=== PATIENT | female | born 1990 | race Caucasian/White ===

== ENCOUNTER 2018-04-28 05:35 | Inpatient (IN) | payer BC ==
[~2018-04-28 05:35] MED LIST: Sodium Chloride 0.9% 10 ML Syringe FLUSH PRN
[2018-04-28] MEDS ORDERED: Citric Acid/Sodium Citrate Solution 30 ML Cup PO ONE (06:30)
[2018-04-28] MEDS ORDERED: Metoclopramide 10 MG/2 ML SDV IV PRN (06:30)
[2018-04-28] MEDS: Lactated Ringers 1,000 ML IV SCH ×2 (06:45→09:15)
[2018-04-28] MEDS ORDERED: Oxytocin/Lactated Ringers 10 UNIT/1,000 ML BAG IV SCH (07:00)
[2018-04-28] MEDS ORDERED: ceFAZolin 2 GM in Premix Bag 1 BAG IV ONE (07:00)
[2018-04-28] MEDS ORDERED: ceFAZolin 1 GM Vial ONE (07:11)
[2018-04-28] MEDS ORDERED: Phenylephrine 1% 10 MG/ML SDV ONE (07:12)
[2018-04-28] MEDS ORDERED: Morphine PF 10 MG/10 ML SDV ONE (07:12)
--- NOTE | 2018-04-28 07:12 | PCM.OPNOTE ---
- General Post-Op/Procedure Note Date of Surgery/Procedure: 04/28/18 Operative Procedure(s): Primary low transverse Findings: Baby Girl in a breech presentation. Apgars of 9 & 9. Weight of 6 lbs 5 oz. Normal appearance of the uterus, fallopian tubes, and ovaries. Pre Op Diagnosis: 39 weeks gestation. 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 Cord blood collected. Fluid Replacement, Intraop: 2,500 Output, Urine Amount: 150 EBL in mLs: 400 Complications: None Condition: Good Free Text/Narrative:: The risks, benefits, indications, potential complications, and alternatives were explained to the patient and informed consent obtained. After induction of anesthesia, the patient was placed in a supine position and then draped and prepped in the usual sterile manner. A Pfannenstiel incision was made and carried down through the subcutaneous tissue to the fascia. Fascial incision was made and extended transversely. The fascia was from the underlying rectus tissue superiorly and inferiorly. The peritoneum was identified and entered. Peritoneal incision was extended longitudinally. The utero-vesical peritoneal reflection was incised transversely and the bladder flap was bluntly freed from the lower uterine segment. A low transverse uterine incision was made sharply with a scalpel and extended bluntly in a cephalocaudad direction. A baby girl was delivered from a breech presentation with standard maneuvers. APGARS as above. After the umbilical cord was clamped and cut cord blood was obtained for evaluation. The placenta was removed intact and appeared normal. The uterus was exteriorized and cleared of clots. The uterine outline, tubes and ovaries appeared normal. The uterine incision was closed with running locked sutures of 0 Vicryl. Hemostasis was obtained with a second imbricating layer of 0 vicryl. The uterus was then placed back into the abdomen. The infracolic gutters were cleared of blood clots. The fascia was then reapproximated with running sutures of 0 Vicryl. The sucutaneous tissue was irrigated with sterile warm normal saline, hemostasis obtained with cautery. This layer was also closed with a running 0 vicryl. The skin was reapproximated with running Subcuticular 4-0 monocryl sutures. Instrument, sponge, and needle counts were correct prior the abdominal closure and at the conclusion of the case.
[2018-04-28] MEDS ORDERED: Oxytocin 10 Units/1 ML SDV ONE (07:13)
[2018-04-28] MEDS ORDERED: Lactated Ringers 1,000 ML ONE ×2 (07:14→08:17)
--- NOTE | 2018-04-28 07:27 | PCM.PREANE ---
Preanesthetic Assessment - Anesthesia/Transfusion/Family Hx Anesthesia History: Prior Anesthesia Without Reaction Family History of Anesthesia Reaction: No Transfusion History: No Prior Transfusion(s) - Review of Systems General: No Symptoms Pulmonary: No Symptoms Cardiovascular: No Symptoms Gastrointestinal: No Symptoms Neurological: Numbness (hands with ) Other: Reports: None - Physical Assessment NPO Status Date: 04/27/18 NPO Status Time: 21:00 Pulse: 88 O2 Sat by Pulse Oximetry: 98 Respiratory Rate: 18 Blood Pressure: 123/75 Temperature: 37.0 C Vital Signs: Last Vital Signs Temp 37.0 C 04/28/18 06:41 Pulse 88 04/28/18 06:41 Resp 18 04/28/18 06:41 BP 123/75 04/28/18 06:41 Pulse Ox 98 04/28/18 06:41 Height: 1.6 m Weight: 87.815 kg ASA Class: 2 Mental Status: Alert & Oriented x3 Airway Class: Mallampati = 1 Dentition: Reports: Normal Dentition Thyro-Mental Finger Breadths: 3 Mouth Opening Finger Breadths: 2 ROM/Head Extension: Full Lungs: Clear to Auscultation, Normal Respiratory Effort Cardiovascular: Regular Rate, Regular Rhythm, No Murmurs - Lab Values: Laboratory Last Values WBC 8.89 K/mm3 (3.98-10.04) 04/28/18 06:27 RBC 3.89 M/mm3 (3.98-5.22) L 04/28/18 06:27 Hgb 11.9 gm/L (11.2-15.7) 04/28/18 06:27 Hct 35.3 % (34.1-44.9) 04/28/18 06:27 MCV 90.7 fl (79.4-94.8) 04/28/18 06:27 MCH 30.6 pg (25.6-32.2) 04/28/18 06:27 MCHC 33.7 g/dl (32.2-35.5) 04/28/18 06:27 RDW Std Deviation 42.9 fL (36.4-46.3) 04/28/18 06:27 Plt Count 235 K/mm3 (182-369) 04/28/18 06:27 MPV 11.3 fl (9.4-12.3) 04/28/18 06:27 Neut % (Auto) 74.5 % (34.0-71.1) H 04/28/18 06:27 Lymph % (Auto) 16.0 % (19.3-51.7) L 04/28/18 06:27 Pratt % (Auto) 8.8 % (4.7-12.5) 04/28/18 06:27 Eos % (Auto) 0.4 (0.7-5.8) L 04/28/18 06:27 Baso % (Auto) 0.1 % (0.1-1.2) 04/28/18 06:27 Neut # (Auto) 6.62 K/mm3 (1.56-6.13) H 04/28/18 06:27 Lymph # (Auto) 1.42 K/mm3 (1.18-3.74) 04/28/18 06:27 Pratt # (Auto) 0.78 K/mm3 (0.24-0.36) H 04/28/18 06:27 Eos # (Auto) 0.04 K/mm3 (0.04-0.36) 04/28/18 06:27 Baso # (Auto) 0.01 K/mm3 (0.01-0.08) 04/28/18 06:27 - Allergies Allergies/Adverse Reactions: Allergies Allergy/AdvReac Type Severity Reaction Status Date / Time Sulfa (Sulfonamide Allergy Hives Verified 04/28/18 00:04 Antibiotics) - Anesthesia Plan Pre-Op Medication Ordered: Antacids - Acknowledgements Anesthesia Type Planned: Spinal Pt an Appropriate Candidate for the Planned Anesthesia: Yes Alternatives and Risks of Anesthesia Discussed w Pt/Guardian: Yes Pt/Guardian Understands and Agrees with Anesthesia Plan: Yes PreAnesthesia Questionnaire HEENT History: Reports: Impaired Vision, Other (See Below) Other HEENT History: wears glasses/contacts Gastrointestinal History: Reports: GERD - Infectious Disease History Infectious Disease History: Reports: Chicken Pox - Past Surgical History HEENT Surgical History: Reports: Oral Surgery - SUBSTANCE USE Smoking Status *Q: Never Smoker Tobacco Use Within Last Twelve Months: No Second Hand Smoke Exposure: No Days Per Week of Alcohol Use: 0 Number of Drinks Per Day: 0 Total Drinks Per Week: 0 Recreational Drug Use History: No - HOME MEDS Home Medications: Home Meds Vits #93/Iron Fum/FA [ Formula Tablet] 04/28/18 [History] - CURRENT (IN HOUSE) MEDS Current Meds: Current Medications Cefazolin Sodium/Dextrose 2 gm (/ Premix) 50 mls @ 100 mls/hr IV ONETIME ONE Stop: 04/28/18 07:29 Lactated Ringer's (Ringers, Lactated) 1,000 mls @ 125 mls/hr IV ASDIRECTED [facility] Last Admin: 04/28/18 06:45 Dose: 125 mls/hr Oxytocin/Lactated Ringer's (Pitocin In Lr 10 Units/1,000 Ml) 10 unit in 1,000 mls @ 100 mls/hr IV ASDIRECTED [facility]; Protocol Metoclopramide HCl (Reglan) 10 mg IV Q6H PRN PRN Reason: Nausea/Vomiting Last Admin: 04/28/18 06:49 Dose: 10 mg Sodium Chloride (Saline Flush) 10 ml FLUSH ASDIRECTED PRN PRN Reason: Keep Vein Open Discontinued Medications Cefazolin Sodium (Ancef) Confirm Administered Dose 2 gm .ROUTE .STK-MED ONE Stop: 04/28/18 07:12 Citric Acid/Sodium Citrate (Bicitra Solution) 30 ml PO ONETIME ONE Stop: 04/28/18 06:31 Last Admin: 04/28/18 06:48 Dose: 30 ml Lactated Ringer's (Ringers, Lactated) Confirm Administered Dose 1,000 mls @ as directed .ROUTE .STK-MED ONE Stop: 04/28/18 07:15 Morphine Sulfate (Duramorph Pf) Confirm Administered Dose 10 mg .ROUTE .STK-MED ONE Stop: 04/28/18 07:13 Oxytocin (Pitocin) Confirm Administered Dose 10 unit .ROUTE .STK-MED ONE Stop: 04/28/18 07:14 Phenylephrine HCl (Deric-Synephrine) Confirm Administered Dose 10 mg .ROUTE .STK- MED ONE Stop: 04/28/18 07:13
[2018-04-28] MEDS ORDERED: Ketorolac 30 MG/ML SDV ONE (08:00)
--- NOTE | 2018-04-28 08:44 | PCM.POSTAN ---
POST ANESTHESIA ASSESSMENT - MENTAL STATUS Mental Status: Alert, Oriented - VITAL SIGNS Pulse Rate: 75 SaO2: 97 Resp Rate: 11 Blood Pressure: 99/52 Temperature: 36.1 C - RESPIRATORY Respiratory Status: Respiratory Rate WNL, Airway Patent, O2 Saturation Stable, Supplemental Oxygen - CARDIOVASCULAR CV Status: Pulse Rate WNL, Blood Pressure Stable - GASTROINTESTINAL GI Status: No Symptoms - PAIN Pain Score: 0 - POST OP HYDRATION Hydration Status: Adequate & Stable - OBSERVATIONS Free Text/Narrative:: no anesthesia complications noted
[2018-04-28] MEDS ORDERED: Acetaminophen/oxyCODONE 325-5 MG Tab PO PRN (09:52)
[2018-04-28] MEDS ORDERED: Dextrose 5%-Lactated Ringers 1,000 ML IV SCH (09:52)
[2018-04-28] MEDS ORDERED: diphenhydrAMINE 50 MG/ML SDV IVPUSH PRN (09:52)
[2018-04-28] MEDS ORDERED: Lanolin 100% Cream 7 GM Tube TOP PRN (09:52)
[2018-04-28] MEDS: Ketorolac 30 MG/ML SDV IVPUSH SCH ×2 (14:13→21:02)
[2018-04-29] MEDS: Ketorolac 30 MG/ML SDV IVPUSH SCH (03:09)
--- NOTE | 2018-04-29 08:04 | PCM.PNPP ---
- General Info Date of Service: 04/29/18 Functional Status: Reports: Pain Controlled, Tolerating Diet, Ambulating, Urinating - Review of Systems General: Reports: No Symptoms Pulmonary: Reports: No Symptoms Cardiovascular: Reports: No Symptoms Gastrointestinal: Reports: No Symptoms Genitourinary: Reports: No Symptoms Musculoskeletal: Reports: No Symptoms Neurological: Reports: No Symptoms - Patient Data Vital Signs - Most Recent: Last Vital Signs Temp 37.3 C 04/29/18 03:59 Pulse 84 04/29/18 03:59 Resp 15 04/29/18 07:00 BP 105/63 04/29/18 03:59 Pulse Ox 97 04/29/18 07:00 Weight - Most Recent: 87.815 kg I&O - Last 24 Hours: Intake & Output 04/28/18 04/29/18 04/29/18 22:59 06:59 14:59 Intake Total 2700 2500 Output Total 300 1225 400 Balance 2400 1275 -400 Lab Results - Last 24 Hours: Laboratory Results - last 24 hr 04/28/18 04/28/18 04/29/18 Range/Units 06:27 06:27 07:25 WBC 9.38 (3.98-10.04) K/mm3 RBC 3.24 L (3.98-5.22) M/mm3 Hgb 9.7 L (11.2-15.7) gm/L Hct 29.8 L (34.1-44.9) % MCV 92.0 (79.4-94.8) fl MCH 29.9 (25.6-32.2) pg MCHC 32.6 (32.2-35.5) g/dl RDW Std Deviation 43.9 (36.4-46.3) fL Plt Count 198 (182-369) K/mm3 MPV 11.0 (9.4-12.3) fl RPR Non-reactive (NONREACTIVE) Blood Type A POSITIVE Gel Antibody Screen Negative Med Orders - Current: Current Medications Diphenhydramine HCl (Benadryl) 25 mg IVPUSH Q6H PRN PRN Reason: Itching or Nausea Docusate Sodium (Colace) 100 mg PO Q12H PRN PRN Reason: Constipation Emollient Ointment (Lansinoh Hpa) 0 gm TOP ASDIRECTED PRN PRN Reason: Sore Nipples Ibuprofen (Motrin) 600 mg PO Q6H PRN PRN Reason: mild pain or fever Oxycodone/Acetaminophen (Percocet 325-5 Mg) 2 tab PO Q4H PRN PRN Reason: Pain (moderate 4-6) Discontinued Medications Cefazolin Sodium (Ancef) Confirm Administered Dose 2 gm .ROUTE .STK-MED ONE Stop: 04/28/18 07:12 Citric Acid/Sodium Citrate (Bicitra Solution) 30 ml PO ONETIME ONE Stop: 04/28/18 06:31 Last Admin: 04/28/18 06:48 Dose: 30 ml Cefazolin Sodium/Dextrose 2 gm (/ Premix) 50 mls @ 100 mls/hr IV ONETIME ONE Stop: 04/28/18 07:29 Last Admin: 04/28/18 10:16 Dose: Not Given Lactated Ringer's (Ringers, Lactated) 1,000 mls @ 125 mls/hr IV ASDIRECTED [facility] Last Admin: 04/28/18 09:15 Dose: 125 mls/hr Oxytocin/Lactated Ringer's (Pitocin In Lr 10 Units/1,000 Ml) 10 unit in 1,000 mls @ 100 mls/hr IV ASDIRECTED [facility]; Protocol Lactated Ringer's (Ringers, Lactated) Confirm Administered Dose 1,000 mls @ as directed .ROUTE .[facility]-MED ONE Stop: 04/28/18 07:15 Lactated Ringer's (Ringers, Lactated) Confirm Administered Dose 1,000 mls @ as directed .ROUTE .[facility]-MED ONE Stop: 04/28/18 08:18 Dextrose/Lactated Ringer's (Dextrose 5%-Lactated Ringers) 1,000 mls @ 125 mls/ hr IV ASDIRECTED [facility] Stop: 04/28/18 17:51 Last Admin: 04/28/18 15:56 Dose: 125 mls/hr Ketorolac Tromethamine (Toradol) Confirm Administered Dose 30 mg .ROUTE .STK- MED ONE Stop: 04/28/18 08:01 Ketorolac Tromethamine (Toradol) 30 mg IVPUSH Q6H [facility] Stop: 04/29/18 02:16 Last Admin: 04/29/18 03:09 Dose: 30 mg Metoclopramide HCl (Reglan) 10 mg IV Q6H PRN PRN Reason: Nausea/Vomiting Last Admin: 04/28/18 06:49 Dose: 10 mg Morphine Sulfate (Duramorph Pf) Confirm Administered Dose 10 mg .ROUTE .STK-MED ONE Stop: 04/28/18 07:13 Oxytocin (Pitocin) Confirm Administered Dose 10 unit .ROUTE .STK-MED ONE Stop: 04/28/18 07:14 Phenylephrine HCl (Deric-Synephrine) Confirm Administered Dose 10 mg .ROUTE .STK- MED ONE Stop: 04/28/18 07:13 Sodium Chloride (Saline Flush) 10 ml FLUSH ASDIRECTED PRN PRN Reason: Keep Vein Open - Infant Interaction Infant Disposition, : [place] in Room with Family Interaction: Holding Infant Feeding: Attempted ; Nursed Fair/Poor Support Person: - Recovery Exam Fundal Tone: Firm Fundal Level: 1 Fingerbreadths Below Umbilicus Fundal Placement: Midline Lochia Amount: Scant Lochia Color: Rubra/Red Perineum Description: Intact, Minimal Bruising/Swelling Episiotomy/Laceration: None Bladder Status: Nonpalpable Urinary Elimination: Not Voiding, Other (see below) Other Urinary Elimination, : Just removed F/C - Exam General: Alert, Oriented, Cooperative Lungs: Clear to Auscultation, Normal Respiratory Effort Cardiovascular: Regular Rate, Regular Rhythm GI/Abdominal Exam: Soft, Non-Tender Extremities: Normal Inspection Skin: Warm, Dry, Intact Wound/Incisions: Healing Well, No Drainage - Problem List & Annotations (1) 39 weeks gestation of SNOMED Code(s): 85701479 Code(s): Z3A.39 - 39 WEEKS GESTATION OF Status: Acute Current Visit: Yes (2) Breech presentation SNOMED Code(s): 5764145 Code(s): O32.1XX0 - MATERNAL CARE FOR BREECH PRESENTATION, UNSP Status: Acute Current Visit: Yes Qualifiers: Fetus number: single or unspecified fetus Qualified Code(s): O32.1XX0 - Maternal care for breech presentation, not applicable or unspecified - Problem List Review Problem List Initiated/Reviewed/Updated: Yes - My Orders Last 24 Hours: My Active Orders 04/28/18 09:52 Activity as Tolerated [RC] .Routine Antiembolic Devices [RC] Q8HR Communication Order [RC] PER UNIT ROUTINE Intake and Output [RC] Q4HR Notify Provider Intake and Out [RC] ASDIRECTED RT Incentive Spirometry [RC] Q2HWA Vital Signs [RC] Q1HR Acetaminophen/oxyCODONE [Percocet 325-5 MG] 2 tab PO Q4H PRN Docusate Sodium [Colace] 100 mg PO Q12H PRN Lanolin [Lansinoh HPA] See Dose Instructions TOP ASDIRECTED PRN diphenhydrAMINE [Benadryl] 25 mg IVPUSH Q6H PRN Assess Lochia [WOMSER] Per Unit Routine Assess Uterine Involution [WOMSER] Per Unit Routine Breast Pump [WOMSER] Per Unit Routine Heat Therapy [OM.PC] Per Unit Routine Peripheral IV Discontinue [OM.PC] Routine Sequential Compression Device [OM.PC] Per Unit Routine 04/28/18 Lunch Regular Diet [DIET] 04/29/18 08:15 Ibuprofen [Motrin] 600 mg PO Q6H PRN - Assessment Assessment:: 28 y/o G1 now P1001 POD#1 from [facility] at 39 1/7 wks for breech - Plan Plan:: S/p PLTCS * Routine cares * Encourage breast feeding * Discharge home in 1-2 days
[2018-04-29] MEDS ORDERED: Ibuprofen 600 MG Tab PO PRN (08:15)
--- NOTE | 2018-04-29 09:27 | PCM48HPAN ---
Post Anesthesia Note - EVALUATION WITHIN 48HRS OF ANESTHETIC Vital Signs in Normal Range: Yes Patient Participated in Evaluation: Yes Respiratory Function Stable: Yes Airway Patent: Yes Cardiovascular Function Stable: Yes Hydration Status Stable: Yes Pain Control Satisfactory: Yes Nausea and Vomiting Control Satisfactory: Yes Mental Status Recovered: Yes
[2018-04-29] MEDS: Docusate Sodium 100 MG Cap PO PRN (13:11)
[2018-04-30] MEDS: Docusate Sodium 100 MG Cap PO PRN (06:35)
--- NOTE | 2018-04-30 06:58 | PCM.DCSUM1 ---
Discharge Summary - Hospital Course Free Text/Narrative:: Janine tamayo a 28-year-old 1 now para 1001 white female was admitted on 2018 for elective primary section for breech presentation. She delivered a 6 lbs. 5 oz. female in a breech presentation. scores were 9 and 9. The procedure was unremarkable. Post operative course was relatively unremarkable. She is nursing. she has no complaints and is done desiring discharge home today. Diagnosis: Stroke: No - Discharge Data Discharge Date: 04/30/18 Discharge Disposition: Home, Self-Care 01 Condition: Good - Patient Summary/Data Operative Procedure(s) Performed: Primary low transverse - Patient Instructions Diet: Regular Diet as Tolerated (Nursing diet with increase calories and calcium as recommended) Activity: As Tolerated (No intercourse or tampons until seen back, no driving a car or lifting greater than 15 pounds for 1 week.) Driving: Do Not Drive (1 week) Showering/Bathing: May Shower Wound/Incision Care: Keep Operative Site/Wound Site Clean and Dry Notify Provider of: Fever, Increased Pain, Swelling and Redness, Drainage, Nausea and/or Vomiting - Discharge Plan Home Medications: Home Meds Vits #93/Iron Fum/FA [ Formula Tablet] 04/28/18 [History] Acetaminophen/oxyCODONE [Percocet 325-5 MG] 2 tab PO Q4H PRN tablet 04/30/18 [ Rx] Docusate Sodium [Colace] 100 mg PO Q12H PRN cap 04/30/18 [Rx] Ibuprofen [Motrin] 600 mg PO Q6H PRN tablet 04/30/18 [Rx] Referrals: Ev Lazcano MD [Physician] - ([facility]) - Discharge Summary/Plan Comment DC Time >30 min.: No Discharge Summary/Plan Comment: Discharge instructions: 1. Discharge home 2. Diet, activity and follow-up discussed with patient. Recommend nursing diet with increased calories and calcium. 3. Precautions given concern increased pain, bleeding, temperature, signs/ symptoms of DVT/PE. 4. Medications per home medication was printed, discussed with and given to the patient. 5. [facility] Diagnosis: Term -delivered Condition: Good - Patient Data Vitals - Most Recent: Last Vital Signs Temp 36.8 C 04/30/18 02:15 Pulse 78 04/30/18 02:15 Resp 16 04/30/18 02:15 BP 128/75 04/30/18 02:15 Pulse Ox 98 04/30/18 02:15 Weight - Most Recent: 87.815 kg I&O - Last 24 hours: Intake & Output 04/29/18 04/29/18 04/30/18 14:59 22:59 06:59 Intake Total 120 220 Output Total 900 Balance -780 220 Lab Results - Last 24 hrs: Laboratory Results - last 24 hr 04/29/18 Range/Units 07:25 WBC 9.38 (3.98-10.04) K/mm3 RBC 3.24 L (3.98-5.22) M/mm3 Hgb 9.7 L (11.2-15.7) gm/L Hct 29.8 L (34.1-44.9) % MCV 92.0 (79.4-94.8) fl MCH 29.9 (25.6-32.2) pg MCHC 32.6 (32.2-35.5) g/dl RDW Std Deviation 43.9 (36.4-46.3) fL Plt Count 198 (182-369) K/mm3 MPV 11.0 (9.4-12.3) fl Med Orders - Current: Current Medications Diphenhydramine HCl (Benadryl) 25 mg IVPUSH Q6H PRN PRN Reason: Itching or Nausea Docusate Sodium (Colace) 100 mg PO Q12H PRN PRN Reason: Constipation Last Admin: 04/30/18 06:35 Dose: 100 mg Emollient Ointment (Lansinoh Hpa) 0 gm TOP ASDIRECTED PRN PRN Reason: Sore Nipples Ibuprofen (Motrin) 600 mg PO Q6H PRN PRN Reason: mild pain or fever Last Admin: 04/29/18 19:45 Dose: 600 mg Oxycodone/Acetaminophen (Percocet 325-5 Mg) 2 tab PO Q4H PRN PRN Reason: Pain (moderate 4-6) Discontinued Medications Cefazolin Sodium (Ancef) Confirm Administered Dose 2 gm .ROUTE .STK-MED ONE Stop: 04/28/18 07:12 Citric Acid/Sodium Citrate (Bicitra Solution) 30 ml PO ONETIME ONE Stop: 04/28/18 06:31 Last Admin: 04/28/18 06:48 Dose: 30 ml Cefazolin Sodium/Dextrose 2 gm (/ Premix) 50 mls @ 100 mls/hr IV ONETIME ONE Stop: 04/28/18 07:29 Last Admin: 04/28/18 10:16 Dose: Not Given Lactated Ringer's (Ringers, Lactated) 1,000 mls @ 125 mls/hr IV ASDIRECTED [facility] Last Admin: 04/28/18 09:15 Dose: 125 mls/hr Oxytocin/Lactated Ringer's (Pitocin In Lr 10 Units/1,000 Ml) 10 unit in 1,000 mls @ 100 mls/hr IV ASDIRECTED [facility]; Protocol Lactated Ringer's (Ringers, Lactated) Confirm Administered Dose 1,000 mls @ as directed .ROUTE .STK-MED ONE Stop: 04/28/18 07:15 Lactated Ringer's (Ringers, Lactated) Confirm Administered Dose 1,000 mls @ as directed .ROUTE .STK-MED ONE Stop: 04/28/18 08:18 Dextrose/Lactated Ringer's (Dextrose 5%-Lactated Ringers) 1,000 mls @ 125 mls/ hr IV ASDIRECTED [facility] Stop: 04/28/18 17:51 Last Admin: 04/28/18 15:56 Dose: 125 mls/hr Ketorolac Tromethamine (Toradol) Confirm Administered Dose 30 mg .ROUTE .STK- MED ONE Stop: 04/28/18 08:01 Ketorolac Tromethamine (Toradol) 30 mg IVPUSH Q6H [facility] Stop: 04/29/18 02:16 Last Admin: 04/29/18 03:09 Dose: 30 mg Metoclopramide HCl (Reglan) 10 mg IV Q6H PRN PRN Reason: Nausea/Vomiting Last Admin: 04/28/18 06:49 Dose: 10 mg Morphine Sulfate (Duramorph Pf) Confirm Administered Dose 10 mg .ROUTE .STK-MED ONE Stop: 04/28/18 07:13 Oxytocin (Pitocin) Confirm Administered Dose 10 unit .ROUTE .STK-MED ONE Stop: 04/28/18 07:14 Phenylephrine HCl (Deric-Synephrine) Confirm Administered Dose 10 mg .ROUTE .STK- MED ONE Stop: 04/28/18 07:13 Sodium Chloride (Saline Flush) 10 ml FLUSH ASDIRECTED PRN PRN Reason: Keep Vein Open
== END 2018-04-30 10:30 | disposition home or self-care (01) | DRG 540 ==
LOC: JD.OB 05:35
PROVIDERS: ADMIT Obstetrics & Gynecology; ATTEND Obstetrics & Gynecology
PROC: 10D00Z1 Extraction of Products of Conception, Low, Open Approach (ICD-10-PCS; principal; 2018-04-28)
PROC: 6A550ZT Pheresis of Cord Blood Stem Cells, Single (ICD-10-PCS; principal; 2018-04-28)
DX: O32.1XX0 Maternal care for breech presentation, not applicable or unspecified (principal); Z37.0 Single live birth; Z3A.39 39 weeks gestation of pregnancy; O99.62 Diseases of the digestive system complicating childbirth; K21.9 Gastro-esophageal reflux disease without esophagitis; Z88.2 Allergy status to sulfonamides
CPT/HCPCS: 36415; 59025; 85025; 85027; 86592; 86850; 86900; 86901; A9270-GY; J0690; J1885; J2270; J2370; J2590; J2765; J7042; J7120

== ENCOUNTER 2019-10-01 11:57 | Emergency (ER) | payer BC ==
[2019-10-01] MEDS ORDERED: Sodium Chloride 0.9% 10 ML Syringe FLUSH PRN (12:09)
--- NOTE | 2019-10-01 12:42 | EDM.PDOC ---
ED HPI GENERAL MEDICAL PROBLEM - General Chief Complaint: MANAGER CLINICAL Problem Stated Complaint: 8 WEEKS PREG AND BLEEDING Time Seen by Provider: 10/01/19 12:09 Source of Information: Reports: Patient, RN Notes Reviewed History Limitations: Reports: No Limitations - History of Present Illness INITIAL COMMENTS - FREE TEXT/NARRATIVE: Patient is a 29-year-old female, who presents to the ED for vaginal bleeding and . Patient notes she is a G2, P1, and states she is roughly 7-1/2 to 8 weeks . She states that her last menstrual period was August 10, and took a positive home test on September 13. Patient notes this morning she started bleeding, and states it felt like she "peed her pants". She states that the bleeding has since subsided, or stop completely, she has had no cramping. Patient noted no clots with the blood that was present. Patient has not had an MANAGER CLINICAL evaluation for this , states that her MANAGER CLINICAL is Dr. Sheets. She believes her blood type is a positive. She states that her first was uneventful, and delivered via . She denies any fever/chills, cough/shortness of breath, nausea/vomiting/diarrhea, or any abdominal pain, dysuria/frequency/urgency. Vital signs are stable, blood pressure is 131/78. - Related Data Allergies Allergy/AdvReac Type Severity Reaction Status Date / Time Sulfa (Sulfonamide Allergy Hives Verified 04/28/18 00:04 Antibiotics) Home Meds: Home Meds Vits #93/Iron Fum/FA [ Formula Tablet] 04/28/18 [History] Acetaminophen/oxyCODONE [Percocet 325-5 MG] 2 tab PO Q4H PRN tablet 04/30/18 [Rx] Docusate Sodium [Colace] 100 mg PO Q12H PRN cap 04/30/18 [Rx] Ibuprofen [Motrin] 600 mg PO Q6H PRN tablet 04/30/18 [Rx] Past Medical History HEENT History: Reports: Impaired Vision, Other (See Below) Other HEENT History: wears glasses/contacts Gastrointestinal History: Reports: GERD MANAGER CLINICAL History: Reports: - Infectious Disease History Infectious Disease History: Reports: Chicken Pox - Past Surgical History HEENT Surgical History: Reports: Oral Surgery Social & Family History - Tobacco Use Smoking Status *Q: Never Smoker Second Hand Smoke Exposure: No - Recreational Drug Use Recreational Drug Use: No ED ROS GENERAL - Review of Systems Review Of Systems: Comprehensive ROS is negative, except as noted in HPI. ED EXAM - Physical Exam Exam: See Below Exam Limited By: No Limitations General Appearance: Alert, WD/WN, No Apparent Distress Respiratory/Chest: No Respiratory Distress, Lungs Clear, Normal Breath Sounds, No Accessory Muscle Use, Chest Non-Tender Cardiovascular: Normal Peripheral Pulses, Regular Rate, Rhythm, No Murmur GI/Abdominal Exam: Normal Bowel Sounds, Soft, Non-Tender, No Distention, No Mass (Female) Exam: No: Tissue Present in Cervix/Vagina Heart Tones: Not [place] Movement: Not Appreciated Neurological: Alert, Oriented, Normal Cognition, No Motor/Sensory Deficits Psychiatric: Normal Affect, Normal Mood Skin Exam: Warm, Dry, Intact, Normal Color, No Rash Course - Vital Signs Last Recorded V/S: Last Vital Signs Temp 97.6 F 10/01/19 12:04 Pulse 70 10/01/19 12:04 Resp 16 10/01/19 12:04 BP 131/78 10/01/19 12:04 Pulse Ox 100 10/01/19 12:04 - Orders/Labs/Meds Orders: Active Orders 24 hr Category Date Time Status Peripheral IV Care [RC] . DIRECTED Care 10/01/19 12:10 Active Sodium Chloride 0.9% [Saline Flush] Med 10/01/19 12:09 Active 10 ml FLUSH ASDIRECTED PRN Peripheral IV Insertion Adult [OM.PC] Stat Oth 10/01/19 12:09 Ordered Medication Orders Sodium Chloride (Saline Flush) 10 ml FLUSH ASDIRECTED PRN PRN Reason: Keep Vein Open Last Admin: 10/01/19 12:22 Dose: 10 ml Documented by: HERMMIC Labs: Laboratory Tests 10/01/19 10/01/19 10/01/19 Range/Units 12:22 12:22 12:22 WBC 5.94 (3.98-10.04) K/mm3 RBC 4.28 (3.98-5.22) M/mm3 Hgb 12.9 D (11.2-15.7) gm/dl Hct 38.5 (34.1-44.9) % MCV 90.0 (79.4-94.8) fl MCH 30.1 (25.6-32.2) pg MCHC 33.5 (32.2-35.5) g/dl RDW Std Deviation 41.4 (36.4-46.3) fL Plt Count 244 (182-369) K/mm3 MPV 10.5 (9.4-12.3) fl Neut % (Auto) 60.8 (34.0-71.1) % Lymph % (Auto) 26.8 (19.3-51.7) % [place] % (Auto) 11.4 (4.7-12.5) % Eos % (Auto) 0.5 L (0.7-5.8) Baso % (Auto) 0.3 (0.1-1.2) % Neut # (Auto) 3.61 (1.56-6.13) K/mm3 Lymph # (Auto) 1.59 (1.18-3.74) K/mm3 [place] # (Auto) 0.68 H (0.24-0.36) K/mm3 Eos # (Auto) 0.03 L (0.04-0.36) K/mm3 Baso # (Auto) 0.02 (0.01-0.08) K/mm3 HCG, Quant 84009.0 mIU/mL Blood Type A POSITIVE Meds: Medications Generic Name Dose Route Start Last Admin Trade Name Freq PRN Reason Stop Dose Admin Sodium Chloride 10 ml 10/01/19 12:09 10/01/19 12:22 Saline Flush FLUSH 10 ml ASDIRECTED PRN Administration Keep Vein Open - Re-Assessments/Exams Free Text/Narrative Re-Assessment/Exam: 10/01/19 12:41 Patient presents to the ED for the evaluation of her bleeding and . CBC, quantitative hCG, ABO/Rh blood typing will be obtained along with a transvaginal ultrasound for evaluation of the patient's . 10/01/19 14:06 Ultrasound is done, but still pending at this time. Patient's hemoglobin is within normal limits at 12.9, hCG is 75,838, patient's blood type is a positive. 10/01/19 14:32 Ultrasound demonstrates a single intrauterine gestation, with gestational dates of 6 weeks 4 days by crown-rump length. Heart rate and 96 bpm. Low heart rate which most likely relates to the age of the gestation. Recommend follow-up exam in 11 days of the patient does not miscarry, to confirm normal developing . We will have her follow-up with Dr. Sheets, sometime this week for possible repeat hCG and a follow-up ultrasound as directed by radiology. Departure - Departure Time of Disposition: 14:19 Disposition: Home, Self-Care 01 Condition: Good Clinical Impression: Vaginal bleeding during - Discharge Information *PRESCRIPTION DRUG MONITORING PROGRAM REVIEWED*: No *COPY OF PRESCRIPTION DRUG MONITORING REPORT IN PATIENT CARINE: No Referrals: Wilda Sheets MD [Primary Care Provider] - Forms: ED Department Discharge Additional Instructions: You were evaluated in the ER today regarding your vaginal bleeding in . You did have some labs drawn, and these were within normal limits, your hCG level was 75,838 , your blood type is A+. Your ultrasound demonstrated a single intrauterine gestation with a heart rate of 96 bpm. By ultrasound, your child is 6 weeks 4 days. Recommend that you do not lift anything heavier than a gallon of milk (5 lbs), do not engage in sexual activities, try to get as much pelvic rest as possible for the next few days. Please try not to exert yourself, rest and relax, and take it easy. If you are bleeding through more than 1-2 maxi pads every couple hours, this would be cause for concern to return to the ER for immediate management. Please follow up with your MANAGER CLINICAL at your next scheduled appointment. If you do not already have an appt scheduled, please do so for early this coming week for repeat labs if MANAGER CLINICAL thinks it is warranted. It is recommended that you have your ultrasound repeated in around 11 days, to make sure that the is developing normally. You have also been given a copy of your ultrasound results to discuss with your MANAGER CLINICAL. Please return to the ED at any time if your symptoms change or worsen. Sepsis Event Note (ED) - Evaluation Sepsis Screening Result: No Definite Risk - Focused Exam Vital Signs: Vital Signs Temp Pulse Resp BP Pulse Ox 10/01/19 12:04 97.6 F 70 16 131/78 100 - My Orders Last 24 Hours: My Active Orders 10/01/19 12:09 Sodium Chloride 0.9% [Saline Flush] 10 ml FLUSH ASDIRECTED PRN Peripheral IV Insertion Adult [OM.PC] Stat 10/01/19 12:10 Peripheral IV Care [RC] . DIRECTED - Assessment/Plan Last 24 Hours: My Active Orders 10/01/19 12:09 Sodium Chloride 0.9% [Saline Flush] 10 ml FLUSH ASDIRECTED PRN Peripheral IV Insertion Adult [OM.PC] Stat 10/01/19 12:10 Peripheral IV Care [RC] . DIRECTED
--- NOTE | 2019-10-01 14:27 | US ---
Obstetrical ultrasound: Multiple real-time images were obtained transvaginally. Comparison: No previous obstetrical imaging is available. Dates: LMP: LMP given as 08/11/19, SANJEEV 05/17/20, gestational age 7 weeks 2 days Current ultrasound: SANJEEV 05/22/20, gestational age 6 weeks 4 days Single intrauterine gestation is seen. Amniotic fluid volume is normal. No subchorionic hemorrhage is identified. Gestational sac is slightly irregular. Measurements: [place]-rump length: 0.67 cm - 6 weeks 4 days Heart rate: 96 BPM Impression: 1. Single intrauterine gestation. Dates as noted above. 2. Low heart rate which most likely relates to age of gestation. 3. Recommend follow-up exam in 11 days, if patient does not miscarry, to confirm normal developing . Diagnostic code #2 This report was dictated in MDT
== END 2019-10-01 15:01 | disposition home or self-care (01) ==
LOC: JD.ED 11:57
DX: O20.9 Hemorrhage in early pregnancy, unspecified (principal); Z88.2 Allergy status to sulfonamides; Z3A.01 Less than 8 weeks gestation of pregnancy
CPT/HCPCS: 36415; 76817; 76817-26; 84702; 85025; 86900; 86901; 99284-25

== ENCOUNTER 2021-02-14 05:26 | Inpatient (IN) | payer BC ==
[2021-02-14] MEDS: Lactated Ringers 1,000 ML IV SCH ×4 (05:57→18:31)
[2021-02-14] MEDS ORDERED: Citric Acid/Sodium Citrate Solution 30 ML Cup PO ONE (06:00)
[2021-02-14] MEDS ORDERED: Metoclopramide 10 MG/2 ML SDV IVPUSH ONE (06:00)
[2021-02-14] MEDS ORDERED: Oxytocin 10 Units/1 ML SDV ONE (06:45)
[2021-02-14] MEDS ORDERED: Morphine PF 10 MG/10 ML SDV ONE (06:45)
[2021-02-14] MEDS ORDERED: fentaNYL 100 MCG/2 ML SDV ONE (06:45)
[2021-02-14] MEDS ORDERED: ceFAZolin 1 GM Vial ONE (06:51)
[2021-02-14] MEDS ORDERED: Oxytocin/Lactated Ringers 10 UNIT/1,000 ML BAG IV SCH (07:00)
[2021-02-14] MEDS ORDERED: ceFAZolin 2 GM in Premix Bag 1 BAG IV ONE (07:00)
--- NOTE | 2021-02-14 07:13 | PCM.PREANE ---
Preanesthetic Assessment - Procedure Proposed Procedure: Repeat section - Anesthesia/Transfusion/Family Hx Anesthesia History: Prior Anesthesia Without Reaction Transfusion History: No Prior Transfusion(s) - Review of Systems General: No Symptoms Pulmonary: No Symptoms Cardiovascular: No Symptoms Gastrointestinal: No Symptoms Neurological: No Symptoms Other: Reports: None - Physical Assessment NPO Status Date: 02/13/21 NPO Status Time: 20:00 Vital Signs: Last Vital Signs Temp 98.5 F 02/14/21 06:00 Pulse 98 02/14/21 06:00 Resp 16 02/14/21 06:00 BP 120/83 02/14/21 06:00 Pulse Ox 96 02/14/21 06:00 Height: 1.6 m Weight: 94.801 kg ASA Class: 2 Mental Status: Alert & Oriented x3 Airway Class: Mallampati = 2 Dentition: Reports: Normal Dentition Thyro-Mental Finger Breadths: 3 Mouth Opening Finger Breadths: 3 ROM/Head Extension: Full Lungs: Clear to Auscultation, Normal Respiratory Effort Cardiovascular: Regular Rate, Regular Rhythm - Lab Values: Laboratory Last Values WBC 5.98 K/mm3 (3.98-10.04) 02/14/21 06:15 RBC 3.70 M/mm3 (3.98-5.22) L 02/14/21 06:15 Hgb 10.5 gm/dl (11.2-15.7) L D 02/14/21 06:15 Hct 32.6 % (34.1-44.9) L 02/14/21 06:15 MCV 88.1 fl (79.4-94.8) 02/14/21 06:15 MCH 28.4 pg (25.6-32.2) 02/14/21 06:15 MCHC 32.2 g/dl (32.2-35.5) 02/14/21 06:15 RDW Std Deviation 41.0 fL (36.4-46.3) 02/14/21 06:15 Plt Count 175 K/mm3 (182-369) L 02/14/21 06:15 MPV 10.1 fl (9.4-12.3) 02/14/21 06:15 Neut % (Auto) 44.2 % (34.0-71.1) 02/14/21 06:15 Lymph % (Auto) 40.8 % (19.3-51.7) 02/14/21 06:15 [place] % (Auto) 14.0 % (4.7-12.5) H 02/14/21 06:15 Eos % (Auto) 0.3 (0.7-5.8) L 02/14/21 06:15 Baso % (Auto) 0.7 % (0.1-1.2) 02/14/21 06:15 Neut # (Auto) 2.64 K/mm3 (1.56-6.13) 02/14/21 06:15 Lymph # (Auto) 2.44 K/mm3 (1.18-3.74) 02/14/21 06:15 [place] # (Auto) 0.84 K/mm3 (0.24-0.36) H 02/14/21 06:15 Eos # (Auto) 0.02 K/mm3 (0.04-0.36) L 02/14/21 06:15 Baso # (Auto) 0.04 K/mm3 (0.01-0.08) 02/14/21 06:15 SARS-CoV-2 RNA (ZACK) Negative (NEGATIVE) 02/14/21 05:37 - Allergies Allergies/Adverse Reactions: Allergies Allergy/AdvReac Type Severity Reaction Status Date / Time Sulfa (Sulfonamide Allergy Hives Verified 04/28/18 00:04 Antibiotics) - Acknowledgements Anesthesia Type Planned: Spinal Pt an Appropriate Candidate for the Planned Anesthesia: Yes Alternatives and Risks of Anesthesia Discussed w Pt/Guardian: Yes Pt/Guardian Understands and Agrees with Anesthesia Plan: Yes PreAnesthesia Questionnaire HEENT History: Reports: Impaired Vision, Other (See Below) Other HEENT History: wears glasses/contacts Gastrointestinal History: Reports: GERD ALTERATIONS EXPERT History: Reports: - Infectious Disease History Infectious Disease History: Reports: Chicken Pox - Past Surgical History HEENT Surgical History: Reports: Oral Surgery - SUBSTANCE USE Tobacco Use Status *Q: Never Tobacco User Second Hand Smoke Exposure: No Recreational Drug Use History: No - HOME MEDS Home Medications: Home Meds Vits #93/Iron Fum/FA [ Formula Tablet] 04/28/18 [History] Acetaminophen/oxyCODONE [Percocet 325-5 MG] 2 tab PO Q4H PRN tablet 04/30/18 [Rx] Docusate Sodium [Colace] 100 mg PO Q12H PRN cap 04/30/18 [Rx] Ibuprofen [Motrin] 600 mg PO Q6H PRN tablet 04/30/18 [Rx] - CURRENT (IN HOUSE) MEDS Current Meds: Current Medications Cefazolin Sodium/Dextrose 2 gm (/ Premix) 50 mls @ 100 mls/hr IV ONETIME ONE Stop: 02/14/21 07:29 Oxytocin/Lactated Ringer's (Pitocin In Lr 10 Units/1,000 Ml) 10 unit in 1,000 mls @ 100 mls/hr IV ASDIRECTED JOAO; Protocol Lactated Ringer's (Ringers, Lactated) 1,000 mls @ 125 mls/hr IV ASDIRECTED JOAO Last Admin: 02/14/21 07:01 Dose: 125 mls/hr Documented by: Sodium Chloride (Sodium Chloride 0.9% 10 Ml Syringe) 10 ml FLUSH 0900,2100 JOAO Discontinued Medications Cefazolin Sodium (Cefazolin 1 Gm Vial) Confirm Administered Dose 2 gm .ROUTE .STK-MED ONE Stop: 02/14/21 06:52 Citric Acid/Sodium Citrate (Citric Acid/Sodium Citrate Solution 30 Ml Cup) 30 ml PO ONETIME ONE Stop: 02/14/21 06:01 Last Admin: 02/14/21 07:04 Dose: 30 ml Documented by: Fentanyl (Fentanyl 100 Mcg/2 Ml Sdv) Confirm Administered Dose 100 mcg .ROUTE .STK-MED ONE Stop: 02/14/21 06:46 Metoclopramide HCl (Metoclopramide 10 Mg/2 Ml Sdv) 10 mg IVPUSH ONETIME ONE Stop: 02/14/21 06:01 Last Admin: 02/14/21 07:04 Dose: 10 mg Documented by: Morphine Sulfate (Morphine Pf 10 Mg/10 Ml Sdv) Confirm Administered Dose 10 mg .ROUTE .STK-MED ONE Stop: 02/14/21 06:46 Oxytocin (Oxytocin 10 Units/1 Ml Sdv) Confirm Administered Dose 20 unit .ROUTE .STK-MED ONE Stop: 02/14/21 06:46
--- NOTE | 2021-02-14 07:22 | PCM.OPNOTE ---
- General Post-Op/Procedure Note Date of Surgery/Procedure: 02/14/21 Operative Procedure(s): Repeat Findings: Moderate amount of scar tissue noted between fascia and rectus. Minimal adhesive disease between the uterus and bladder. Baby boy in vertex presentation. APGARS of 9 & 9. Weight of 8 lbs 5 oz. Pre Op Diagnosis: 39 1/7 wks. Hx of Post-Op Diagnosis: Same Anesthesia Technique: Spinal Primary Surgeon: Wilda Sheets Secondary Surgeon: Ev Lazcano Anesthesia Provider: Maxx Amaro Reason Cardio Clinician Was Necessary: BMI of patient. Speed / safety of procedure Pathology: Cord blood obtained. Placenta discarded. Fluid Replacement, Intraop: 1,400 Output, Urine Amount: 50 EBL in mLs: 600 Complications: None Condition: Good Free Text/Narrative:: The risks, benefits, indications, potential complications, and alternatives were explained to the patient and informed consent obtained. After induction of anesthesia, the patient was placed in a supine position and then draped and prepped in the usual sterile manner. A Pfannenstiel incision was made and carried down through the subcutaneous tissue to the fascia. Fascial incision was made and extended transversely. The fascia was from the underlying rectus tissue superiorly and inferiorly. The peritoneum was identified and entered. Peritoneal incision was extended longitudinally. The utero-vesical peritoneal reflection was incised transversely and the bladder flap was bluntly freed from the lower uterine segment. A low transverse uterine incision was made sharply with a scalpel and extended bluntly in a cephalocaudad direction. A baby boy was delivered from a vertex presentation with APGARS as above. After the umbilical cord was clamped and cut cord blood was obtained for evaluation. The placenta was removed intact and appeared normal. The uterus was exteriorized and cleared of clots. The uterine outline, tubes and ovaries appeared normal. The uterine incision was closed with running locked sutures of 0 Vicryl. Hemostasis was obtained with a few interrupted sutures of 0 Vicryl. The uterus was then placed back into the abdomen. The infracolic gutters were cleared of blood clots. The fascia was then reapproximated with running sutures of 0 Vicryl. The subcutaneous tissue was irrigated with sterile warm normal saline, hemostasis obtained with cautery. This layer was also closed with a running 0 Vicryl. The skin was reapproximated with running Subcuticular 4-0 Monocryl sutures and sealed with Dermabond. Instrument, sponge, and needle counts were correct prior the abdominal closure and at the conclusion of the case.
[2021-02-14] MEDS ORDERED: Ketorolac 30 MG/ML SDV ONE (07:42)
[2021-02-14] MEDS ORDERED: Ondansetron 4 MG/2 ML SDV ONE (07:42)
[2021-02-14] MEDS ORDERED: fentaNYL 100 MCG/2 ML SDV IVPUSH PRN (07:49)
[2021-02-14] MEDS ORDERED: diphenhydrAMINE 50 MG/ML SDV IVPUSH PRN ×2 (07:49→11:28)
[2021-02-14] MEDS ORDERED: Ondansetron 4 MG/2 ML SDV IVPUSH PRN (07:49)
[2021-02-14] MEDS ORDERED: Lactated Ringers 1,000 ML ONE (08:03)
--- NOTE | 2021-02-14 08:24 | PCM.POSTAN ---
POST ANESTHESIA ASSESSMENT - MENTAL STATUS Mental Status: Alert, Oriented - VITAL SIGNS Vital Signs: Last Vital Signs Temp 97.7 F 02/14/21 08:15 Pulse 69 02/14/21 08:15 Resp 9 L 02/14/21 08:15 BP 101/56 L 02/14/21 08:15 Pulse Ox 95 02/14/21 08:15 - RESPIRATORY Respiratory Status: Respiratory Rate WNL, Airway Patent, O2 Saturation Stable - CARDIOVASCULAR CV Status: Pulse Rate WNL, Blood Pressure Stable - GASTROINTESTINAL GI Status: No Symptoms - PAIN Pain Score: 0 (post SAB) - POST OP HYDRATION Hydration Status: Adequate & Stable
[2021-02-14] MEDS ORDERED: Bupivacaine 0.75%/D5W 2 ML Amp ONE (08:55)
[2021-02-14] MEDS ORDERED: Sodium Chloride 0.9% 10 ML Syringe FLUSH SCH (09:00)
[2021-02-14] MEDS ORDERED: Benzocaine/Menthol 20%-0.5% Spray 78 GM Cannister TOP PRN (09:30)
[2021-02-14] MEDS ORDERED: Witch Hazel Medicated Pads 40/Jar TOP PRN (09:30)
[2021-02-14] MEDS ORDERED: Acetaminophen 325 MG Tab PO PRN (09:30)
[2021-02-14] MEDS ORDERED: Docusate Sodium 100 MG Cap PO PRN (09:30)
[2021-02-14] MEDS ORDERED: Dextrose 5%-Lactated Ringers 1,000 ML IV SCH (10:00)
[2021-02-14] MEDS ORDERED: Acetaminophen/oxyCODONE 325-5 MG Tab PO PRN (11:28)
[2021-02-14] MEDS ORDERED: Ketorolac 30 MG/ML SDV IVPUSH SCH (14:30)
[2021-02-14] MEDS: Ibuprofen 600 MG Tab PO PRN (16:33)
[2021-02-15] MEDS: Acetaminophen/oxyCODONE 325-5 MG Tab PO PRN ×2 (04:47→16:24)
--- NOTE | 2021-02-15 06:09 | PCM.PNPP ---
- General Info Date of Service: 02/15/21 Subjective Update: POD1 Doing great. Pain controlled. Nausea improved. UOP now well more than adequate. Functional Status: Reports: Pain Controlled - Review of Systems General: Reports: No Symptoms HEENT: Reports: No Symptoms Pulmonary: Reports: No Symptoms Cardiovascular: Reports: No Symptoms Gastrointestinal: Reports: No Symptoms Genitourinary: Reports: No Symptoms Musculoskeletal: Reports: No Symptoms Skin: Reports: No Symptoms Neurological: Reports: No Symptoms Psychiatric: Reports: No Symptoms - General Info Date of Service: 02/15/21 - Patient Data Vital Signs - Most Recent: Last Vital Signs Temp 36.5 C 02/15/21 04:02 Pulse 89 02/15/21 04:02 Resp 16 02/15/21 05:00 BP 117/66 02/15/21 04:02 Pulse Ox 99 02/15/21 05:00 Weight - Most Recent: 94.801 kg I&O - Last 24 Hours: Intake & Output 02/14/21 02/14/21 02/15/21 14:59 22:59 06:59 Intake Total 2120 900 800 Output Total 780 074 7414 Balance 1770 405 -905 Lab Results - Last 24 Hours: Laboratory Results - last 24 hr 02/14/21 02/14/21 02/14/21 Range/Units 05:37 06:15 06:15 WBC 5.98 (3.98-10.04) K/mm3 RBC 3.70 L (3.98-5.22) M/mm3 Hgb 10.5 L D (11.2-15.7) gm/dl Hct 32.6 L (34.1-44.9) % MCV 88.1 (79.4-94.8) fl MCH 28.4 (25.6-32.2) pg MCHC 32.2 (32.2-35.5) g/dl RDW Std Deviation 41.0 (36.4-46.3) fL Plt Count 175 L (182-369) K/mm3 MPV 10.1 (9.4-12.3) fl Neut % (Auto) 44.2 (34.0-71.1) % Lymph % (Auto) 40.8 (19.3-51.7) % [place] % (Auto) 14.0 H (4.7-12.5) % Eos % (Auto) 0.3 L (0.7-5.8) Baso % (Auto) 0.7 (0.1-1.2) % Neut # (Auto) 2.64 (1.56-6.13) K/mm3 Lymph # (Auto) 2.44 (1.18-3.74) K/mm3 [place] # (Auto) 0.84 H (0.24-0.36) K/mm3 Eos # (Auto) 0.02 L (0.04-0.36) K/mm3 Baso # (Auto) 0.04 (0.01-0.08) K/mm3 SARS-CoV-2 RNA (ZACK) Negative (NEGATIVE) Blood Type A POSITIVE Gel Antibody Screen Negative Med Orders - Current: Current Medications Acetaminophen (Acetaminophen 325 Mg Tab) 650 mg PO Q4H PRN PRN Reason: mild pain or fever Benzocaine/Menthol (Benzocaine/Menthol 20%-0.5% [place] 78 Gm Cannister) 0 gm TOP ASDIRECTED PRN PRN Reason: Perineal Comfort Measure Diphenhydramine HCl (Diphenhydramine 50 Mg/Ml Sdv) 25 mg IVPUSH Q6H PRN PRN Reason: Pruritis Diphenhydramine HCl (Diphenhydramine 50 Mg/Ml Sdv) 25 mg IVPUSH Q6H PRN PRN Reason: Itching or Nausea Docusate Sodium (Docusate Sodium 100 Mg Cap) 100 mg PO BID PRN PRN Reason: Constipation Fentanyl (Fentanyl 100 Mcg/2 Ml Sdv) 50 mcg IVPUSH Q5M PRN PRN Reason: Pain Dextrose/Lactated Ringer's (Dextrose 5%-Lactated Ringers) 1,000 mls @ 125 mls/hr IV ASDIRECTED PENDING SALE TO [facility] Last Admin: 02/14/21 11:18 Dose: 125 mls/hr Documented by: Lactated Ringer's (Ringers, Lactated) 1,000 mls @ 125 mls/hr IV ASDIRECTED PENDING SALE TO [facility] Last Admin: 02/14/21 18:31 Dose: 125 mls/hr Documented by: Ibuprofen (Ibuprofen 600 Mg Tab) 600 mg PO Q6H PRN PRN Reason: Mild pain or fever Last Admin: 02/14/21 16:33 Dose: 600 mg Documented by: Ondansetron HCl (Ondansetron 4 Mg/2 Ml Sdv) 4 mg IVPUSH ONETIME PRN PRN Reason: Nausea/Vomiting Oxycodone/Acetaminophen (Acetaminophen/Oxycodone 325-5 Mg Tab) 1 tab PO Q4H PRN PRN Reason: Pain (moderate 4-6) Last Admin: 02/15/21 04:47 Dose: 1 tab Documented by: Oxycodone/Acetaminophen (Acetaminophen/Oxycodone 325-5 Mg Tab) 2 tab PO Q4H PRN PRN Reason: Pain (severe 7-10) Witch Anna (Witch Anna Medicated Pads 40/Jar) 1 pad TOP ASDIRECTED PRN PRN Reason: Perineal Comfort Measure Discontinued Medications Bupivacaine HCl/Dextrose (Bupivacaine 0.75%/D5w 2 Ml Amp) Confirm Administered Dose 2 ml .ROUTE .STK-MED ONE Stop: 02/14/21 08:56 Cefazolin Sodium (Cefazolin 1 Gm Vial) Confirm Administered Dose 2 gm .ROUTE .STK-MED ONE Stop: 02/14/21 06:52 Citric Acid/Sodium Citrate (Citric Acid/Sodium Citrate Solution 30 Ml Cup) 30 ml PO ONETIME ONE Stop: 02/14/21 06:01 Last Admin: 02/14/21 07:04 Dose: 30 ml Documented by: Fentanyl (Fentanyl 100 Mcg/2 Ml Sdv) Confirm Administered Dose 100 mcg .ROUTE .STK-MED ONE Stop: 02/14/21 06:46 Cefazolin Sodium/Dextrose 2 gm (/ Premix) 50 mls @ 100 mls/hr IV ONETIME ONE Stop: 02/14/21 07:29 Last Admin: 02/14/21 11:12 Dose: Not Given Documented by: Oxytocin/Lactated Ringer's (Pitocin In Lr 10 Units/1,000 Ml) 10 unit in 1,000 mls @ 100 mls/hr IV ASDIRECTED JOAO; Protocol Lactated Ringer's (Ringers, Lactated) 1,000 mls @ 125 mls/hr IV ASDIRECTED JOAO Last Admin: 02/14/21 07:01 Dose: 125 mls/hr Documented by: Lactated Ringer's (Ringers, Lactated) Confirm Administered Dose 1,000 mls @ as directed .ROUTE .STK-MED ONE Stop: 02/14/21 08:04 Ketorolac Tromethamine (Ketorolac 30 Mg/Ml Sdv) Confirm Administered Dose 30 mg .ROUTE .STK-MED ONE Stop: 02/14/21 07:43 Ketorolac Tromethamine (Ketorolac 30 Mg/Ml Sdv) 30 mg IVPUSH Q6H JOAO Stop: 02/15/21 02:31 Last Admin: 02/14/21 16:29 Dose: Not Given Documented by: Metoclopramide HCl (Metoclopramide 10 Mg/2 Ml Sdv) 10 mg IVPUSH ONETIME ONE Stop: 02/14/21 06:01 Last Admin: 02/14/21 07:04 Dose: 10 mg Documented by: Morphine Sulfate (Morphine Pf 10 Mg/10 Ml Sdv) Confirm Administered Dose 10 mg .ROUTE .STK-MED ONE Stop: 02/14/21 06:46 Ondansetron HCl (Ondansetron 4 Mg/2 Ml Sdv) Confirm Administered Dose 8 mg .ROUTE .STK-MED ONE Stop: 02/14/21 07:43 Oxytocin (Oxytocin 10 Units/1 Ml Sdv) Confirm Administered Dose 20 unit .ROUTE .STK-MED ONE Stop: 02/14/21 06:46 Sodium Chloride (Sodium Chloride 0.9% 10 Ml Syringe) 10 ml FLUSH 0900,2100 PENDING SALE TO [facility] Last Admin: 02/14/21 11:12 Dose: Not Given Documented by: - Interaction Support Person: - Recovery Exam Fundal Tone: Firm Fundal Level: 1 Fingerbreadths Below Umbilicus Fundal Placement: Midline Lochia Amount: Small Lochia Color: Rubra/Red Perineum Description: Intact, Minimal Bruising/Swelling Episiotomy/Laceration: None Bladder Status: Indwelling Catheter in Place Urinary Elimination: Indwelling Catheter - Exam General: Alert, Oriented HEENT: Pupils Equal Neck: Supple Lungs: Clear to Auscultation, Normal Respiratory Effort Cardiovascular: Regular Rate, Regular Rhythm GI/Abdominal Exam: Normal Bowel Sounds, Soft, Non-Tender, No Organomegaly, No Distention, No Abnormal Bruit, No Mass, Pelvis Stable Extremities: Normal Inspection, Normal Range of Motion Skin: Warm, Dry, Intact Wound/Incisions: Healing Well Neurological: No New Focal Deficit Psy/Mental Status: Alert, Normal Affect, Normal Mood - Problem List Review Problem List Initiated/Reviewed/Updated: Yes - My Orders Last 24 Hours: My Active Orders 02/14/21 16:15 Lactated Ringers [Ringers, Lactated] 1,000 ml IV ASDIRECTED - Assessment Assessment:: POD1 First 6 hours postop just adequate urine output at 30-40ml/hr. Bolus and added maintenance fluids after initially postop fluids and picked up significantly. Doing great. Will saline lock IV. POssible discharge tomorrow.
[2021-02-15] MEDS: Ibuprofen 600 MG Tab PO PRN ×2 (11:07→21:23)
--- NOTE | 2021-02-15 20:14 | PCM48HPAN ---
Post Anesthesia Note - EVALUATION WITHIN 48HRS OF ANESTHETIC Vital Signs in Normal Range: Yes Patient Participated in Evaluation: Yes Respiratory Function Stable: Yes Airway Patent: Yes Cardiovascular Function Stable: Yes Hydration Status Stable: Yes Pain Control Satisfactory: Yes Nausea and Vomiting Control Satisfactory: Yes Mental Status Recovered: Yes Vital Signs: Last Vital Signs Temp 98.4 F 02/15/21 15:00 Pulse 106 H 02/15/21 15:00 Resp 14 02/15/21 15:00 BP 104/74 02/15/21 15:00 Pulse Ox 97 02/15/21 15:00 - COMMENTS/OBSERVATIONS Free Text/Narrative:: No apparent anesthesia complications noted
--- NOTE | 2021-02-16 03:47 | PCM.DCSUM1 ---
Discharge Summary - Hospital Course Diagnosis: Stroke: No - Discharge Data Discharge Date: 02/16/21 Discharge Disposition: Home, Self-Care 01 Condition: Good - Referral to Home Health Primary Care Physician: Wilda Sheets MD - Patient Summary/Data Operative Procedure(s) Performed: Repeat Hospital Course: Moderate amount of scar tissue noted between fascia and rectus. Minimal adhesive disease between the uterus and bladder. Baby boy in vertex presentation. APGARS of 9 & 9. Weight of 8 lbs 5 oz. - Patient Instructions Diet: Usual Diet as Tolerated Activity: No Strenuous Activities Driving: May Drive Today Showering/Bathing: May Shower Wound/Incision Care: Keep Operative Site/Wound Site Clean and Dry Notify Provider of: Fever - Discharge Plan *PRESCRIPTION DRUG MONITORING PROGRAM REVIEWED*: No *COPY OF PRESCRIPTION DRUG MONITORING REPORT IN PATIENT CARINE: No Home Medications: Home Meds Vits #93/Iron Fum/FA [ Formula Tablet] 04/28/18 [History] Acetaminophen/oxyCODONE [Percocet 325-5 MG] 2 tab PO Q4H PRN tablet 04/30/18 [Rx] Docusate Sodium [Colace] 100 mg PO Q12H PRN cap 04/30/18 [Rx] Ibuprofen [Motrin] 600 mg PO Q6H PRN tablet 04/30/18 [Rx] Referrals: Wilda Sheets MD [Primary Care Provider] - (2 weeks) - Discharge Summary/Plan Comment DC Time >30 min.: No Total # of Minutes for Discharge Time: 15 - General Info Date of Service: 02/16/21 Functional Status: Reports: Pain Controlled - Review of Systems General: Reports: No Symptoms HEENT: Reports: No Symptoms Pulmonary: Reports: No Symptoms Cardiovascular: Reports: No Symptoms Gastrointestinal: Reports: No Symptoms Genitourinary: Reports: No Symptoms Musculoskeletal: Reports: No Symptoms Skin: Reports: No Symptoms Neurological: Reports: No Symptoms Psychiatric: Reports: No Symptoms - Patient Data Vitals - Most Recent: Last Vital Signs Temp 36.8 C 02/16/21 03:21 Pulse 87 02/16/21 03:21 Resp 14 02/16/21 03:21 BP 121/56 L 02/16/21 03:21 Pulse Ox 98 02/16/21 03:21 Weight - Most Recent: 94.801 kg I&O - Last 24 hours: Intake & Output 02/15/21 02/15/21 02/16/21 14:59 22:59 06:59 Intake Total 0 Output Total 600 Balance -600 0 Lab Results - Last 24 hrs: Laboratory Results - last 24 hr 02/14/21 Range/Units 06:15 RPR Non-reactive (NONREACTIVE) Med Orders - Current: Current Medications Acetaminophen (Acetaminophen 325 Mg Tab) 650 mg PO Q4H PRN PRN Reason: mild pain or fever Benzocaine/Menthol (Benzocaine/Menthol 20%-0.5% [place] 78 Gm Cannister) 0 gm TOP ASDIRECTED PRN PRN Reason: Perineal Comfort Measure Diphenhydramine HCl (Diphenhydramine 50 Mg/Ml Sdv) 25 mg IVPUSH Q6H PRN PRN Reason: Pruritis Diphenhydramine HCl (Diphenhydramine 50 Mg/Ml Sdv) 25 mg IVPUSH Q6H PRN PRN Reason: Itching or Nausea Docusate Sodium (Docusate Sodium 100 Mg Cap) 100 mg PO BID PRN PRN Reason: Constipation Fentanyl (Fentanyl 100 Mcg/2 Ml Sdv) 50 mcg IVPUSH Q5M PRN PRN Reason: Pain Dextrose/Lactated Ringer's (Dextrose 5%-Lactated Ringers) 1,000 mls @ 125 mls[facility]hr [facility] Last Admin: 02/14/21 11:18 Dose: 125 mls/hr Documented by: Lactated Ringer's (Ringers, Lactated) 1,000 mls @ 125 mls[facility] Last Admin: 02/14/21 18:31 Dose: 125 mls/hr Documented by: Ibuprofen (Ibuprofen 600 Mg Tab) 600 mg PO Q6H PRN PRN Reason: Mild pain or fever Last Admin: 02/15/21 21:23 Dose: 600 mg Documented by: Ondansetron HCl (Ondansetron 4 Mg/2 Ml Sdv) 4 mg IVPUSH ONETIME PRN PRN Reason: Nausea/Vomiting Oxycodone/Acetaminophen (Acetaminophen/Oxycodone 325-5 Mg Tab) 1 tab PO Q4H PRN PRN Reason: Pain (moderate 4-6) Last Admin: 02/15/21 16:24 Dose: 1 tab Documented by: Oxycodone/Acetaminophen (Acetaminophen/Oxycodone 325-5 Mg Tab) 2 tab PO Q4H PRN PRN Reason: Pain (severe 7-10) Witch Anna (Witch Anna Medicated Pads 40/Jar) 1 pad TOP ASDIRECTED PRN PRN Reason: Perineal Comfort Measure Discontinued Medications Bupivacaine HCl/Dextrose (Bupivacaine 0.75%/D5w 2 Ml Amp) Confirm Administered Dose 2 ml .ROUTE .STK-MED ONE Stop: 02/14/21 08:56 Cefazolin Sodium (Cefazolin 1 Gm Vial) Confirm Administered Dose 2 gm .ROUTE .STK-MED ONE Stop: 02/14/21 06:52 Citric Acid/Sodium Citrate (Citric Acid/Sodium Citrate Solution 30 Ml Cup) 30 ml PO ONETIME ONE Stop: 02/14/21 06:01 Last Admin: 02/14/21 07:04 Dose: 30 ml Documented by: Fentanyl (Fentanyl 100 Mcg/2 Ml Sdv) Confirm Administered Dose 100 mcg .ROUTE .STK-MED ONE Stop: 02/14/21 06:46 Cefazolin Sodium/Dextrose 2 gm (/ Premix) 50 mls @ 100 mls/hr IV ONETIME ONE Stop: 02/14/21 07:29 Last Admin: 02/14/21 11:12 Dose: Not Given Documented by: Oxytocin/Lactated Ringer's (Pitocin In Lr 10 Units/1,000 Ml) 10 unit in 1,000 mls @ 100 mls/hr IV ASDIRECTED JOAO; Protocol Lactated Ringer's (Ringers, Lactated) 1,000 mls @ 125 mls/hr IV ASDIRECTED [facility] Last Admin: 02/14/21 07:01 Dose: 125 mls/hr Documented by: Lactated Ringer's (Ringers, Lactated) Confirm Administered Dose 1,000 mls @ as directed .ROUTE .STK-MED ONE Stop: 02/14/21 08:04 Ketorolac Tromethamine (Ketorolac 30 Mg/Ml Sdv) Confirm Administered Dose 30 mg .ROUTE .STK-MED ONE Stop: 02/14/21 07:43 Ketorolac Tromethamine (Ketorolac 30 Mg/Ml Sdv) 30 mg IVPUSH Q6H [facility] Stop: 02/15/21 02:31 Last Admin: 02/14/21 16:29 Dose: Not Given Documented by: Metoclopramide HCl (Metoclopramide 10 Mg/2 Ml Sdv) 10 mg IVPUSH ONETIME ONE Stop: 02/14/21 06:01 Last Admin: 02/14/21 07:04 Dose: 10 mg Documented by: Morphine Sulfate (Morphine Pf 10 Mg/10 Ml Sdv) Confirm Administered Dose 10 mg .ROUTE .STK-MED ONE Stop: 02/14/21 06:46 Ondansetron HCl (Ondansetron 4 Mg/2 Ml Sdv) Confirm Administered Dose 8 mg .ROUTE .STK-MED ONE Stop: 02/14/21 07:43 Oxytocin (Oxytocin 10 Units/1 Ml Sdv) Confirm Administered Dose 20 unit .ROUTE .STK-MED ONE Stop: 02/14/21 06:46 Sodium Chloride (Sodium Chloride 0.9% 10 Ml Syringe) 10 ml FLUSH 0900,2100 [facility] Last Admin: 02/14/21 11:12 Dose: Not Given Documented by: - Exam General: Reports: Alert, Oriented HEENT: Reports: Pupils Equal, Pupils Reactive, EOMI, Mucous Membr. Moist/[place] Neck: Reports: Supple Lungs: Reports: Clear to Auscultation, Normal Respiratory Effort Cardiovascular: Reports: Regular Rate, Regular Rhythm GI/Abdominal Exam: Normal Bowel Sounds, Soft, Non-Tender, No Organomegaly, No Distention Back Exam: Reports: Normal Inspection Extremities: Normal Inspection, Normal Range of Motion, Non-Tender, No Pedal Edema, Normal Capillary Refill Skin: Reports: Warm Neurological: Reports: No New Focal Deficit Psy/Mental Status: Reports: Alert, Normal Affect, Normal Mood
[2021-02-16] MEDS: Ibuprofen 600 MG Tab PO PRN (06:56)
[2021-02-17] MEDS ORDERED: Iron Polysaccharides Complex 150 MG Cap PO SCH (09:00)
== END 2021-02-16 12:50 | disposition home or self-care (01) | DRG 540 ==
LOC: JD.OB 05:26
PROVIDERS: ADMIT Obstetrics & Gynecology; ATTEND Obstetrics & Gynecology
PROC: 10D00Z1 Extraction of Products of Conception, Low, Open Approach (ICD-10-PCS; principal; 2021-02-14)
DX: O34.211 Maternal care for low transverse scar from previous cesarean delivery (principal); Z37.0 Single live birth; Z20.822 Contact with and (suspected) exposure to COVID-19; Z3A.39 39 weeks gestation of pregnancy
CPT/HCPCS: 01961; 36415; 59025; 85025; 85027; 86592; 86850; 86900; 86901; 94762; A9270-GY; J0690; J1885; J2270; J2405; J2590; J2765; J3010; J7120; J7121; U0002